=== PATIENT | female | born 1980 | race Caucasian/White ===

== ENCOUNTER → 2019-03-23 | Emergency (ER) | payer MEDICAID ==
[2019-03-23] MEDS: CYCLOBENZAPRINE 10 MG TAB PO (17:49)
[2019-03-23] MEDS: ACETAMINOPHEN 500 MG TAB PO (17:49)
[2019-03-23] MEDS: KETOROLAC 60 MG INJ IM (17:52)
[2019-03-23] MEDS: IPRATROPIUM (NEB) 0.5 MG/2.5 ML AMP HHN (17:53)
[2019-03-23] MEDS: ALBUTEROL 0.083% (NEB) 2.5 MG/3 ML AMP HHN (17:53)
[2019-03-23 17:56] LABS: ADD UMIC YES; UR ASCORBIC ACID NEGATIVE (NEGATIVE); UR BACTERIA FEW /HPF (NONE SEEN); UR BILIRUBIN (Dip) NEGATIVE (NEGATIVE); UR BLOOD (Dip) NEGATIVE (NEGATIVE); UR CLARITY SLIGHTLY CLOUDY (CLEAR); UR COLOR YELLOW (YELLOW); UR GLUCOSE (Dip) NEGATIVE (NEGATIVE); UR KETONES (Dip) 1+ mg/dL (NEGATIVE); UR LEUKOCYTE ESTERASE (Dip) 1+ Leu/ul (NEGATIVE); UR NITRITE (Dip) NEGATIVE (NEGATIVE); UR RBC 6 /HPF (0-5); UR SPECIFIC GRAVITY (Dip) 1.018 (1.003-1.030); UR SQUAMOUS EPITHELIAL CELL FEW /HPF (FEW); UR TOTAL PROTEIN (Dip) NEGATIVE (NEGATIVE); UR UROBILINOGEN (Dip) NEGATIVE (NEGATIVE); UR WBC 3 /HPF (0-5)
== END | disposition home or self-care (01) ==
LOC: FTE 14:40
DX: J06.9 Acute upper respiratory infection, unspecified (principal)
CPT/HCPCS: 71046; 81001; 81025; 94664; 96372; 99284-25